=== PATIENT | female | born 1980 | race Caucasian/White ===

== ENCOUNTER 2022-10-28 18:55 | Emergency (ER) | payer OTHER, SELFPAY ==
[2022-10-28] VITALS (24 sets, daily range): BP systolic 96–127; BP diastolic 65–86; PULSE 76–118; RESP 9–25; TEMP 36.6; O2SAT 96–100
--- NOTE | ~2022-10-28 | XR_ITS ---
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 no cardiac hx Comparison: None available. RESULT: Lines, tubes, and devices: None. Lungs and pleura: Slightly low lung volumes with crowding. Lungs otherwise clear. Cardiomediastinal silhouette: Normal. Other: No acute osseous or upper abdominal finding. IMPRESSION: No acute cardiopulmonary process. Reviewed, dictated and finalized at location K. ING DIE FINISHER
--- NOTE | ~2022-10-28 | CT_ITS ---
EXAMINATION: CT brain wo con DATE: 10/28/2022 20:56 INDICATION: stuttering speech, tremors . TECHNIQUE: Computed tomography (CT) of the head was performed without intravenous contrast. The mA wa s adjusted according to patient size. Iterative reconstruction technique was employed. The dose-lengt h product was 605.33 mGy-cm. COMPARISON: None. FINDINGS: Technically limited sagittal reformats, with low-resolution and stairstep artifact. No acute intracranial hemorrhage or extra-axial fluid collection. No hydrocephalus, mass, or herniation. No acute ischemic infarct. Unremarkable dural venous sinus attenuation. No acute osseous abnormality. The aerated spaces are clear. IMPRESSION: Technically limited sagittal reformats. Within that constraint, no definite acute intracranial proces s. Reviewed, dictated and finalized at location K. BATIC RIGGER IMPRESSION: Technically limited sagittal reformats. Within that constraint, no definite acu te intracranial process.
--- NOTE | 2022-10-28 19:06 | PC.NURSE ---
pt shaking herself out of wheelchair at intake desk. pt conversing during shaking episodes. assisted by [facility]. pt taken to room 3.
--- NOTE | 2022-10-28 19:35 | ECG_ITS ---
Measurements Intervals [place] Rate: 120 P: 61 TX: 151 QRS: 57 QRSD: 84 T: 38 QT: 304 QTc: 431 Interpretive Statements SINUS TACHYCARDIA MINIMAL Q WAVES- ANTEROLAT/INF LEADS NONSPECIFIC ST & T-WAVE ABNORMALITY- ANT/INF LEADS BASELINE ARTIFACT- I, III, AVR, AVL, AVF ABNORMAL ECG NO PREVIOUS ECG AVAILABLE FOR COMPARISON Electronically Signed On 10-29-2022 6:33:28 [employer] by Rafy Garrett D.O.
[2022-10-28] MEDS: SODIUM CHLORIDE 0.9% IV 1,000 ML 999 ML IV CONT (20:05)
--- NOTE | 2022-10-28 20:05 | PC.NURSE ---
pt resting comfortably in bed, arms no longer shaking. Respirations even and unlabored. WCTM.
--- NOTE | 2022-10-28 20:06 | ED.GENADULT ---
HPI - General Adult General Chief complaint: Unspecified Stated complaint: tremors and incontinence s/p marijuana Time Seen by Provider: 10/28/22 19:05 Source: patient, EMS and RN notes reviewed Mode of arrival: EMS Limitations: intoxication History of Present Illness HPI narrative: This is a 42 year old female with history of anxiety who presents for evaluation of tremors s/p incontinence. Patient states she smoked marijuana today and afterwards she developed tremors, uncontrollable crying with stuttering speech. She reports she has been smoking marijuana for the past 2 days. She states she bought the marijuana from somewhere in [place]. She denies drinking alcohol or any other drug use. Related Data Allergies Allergy/AdvReac Type Severity Reaction Status Date / Time No Known Allergies Allergy Unverified 02/13/16 15:03 Review of Systems Constitutional: Constitutional: Denies weakness Cardiovascular: Cardiovascular: Denies syncope, Denies rapid heart rate, Denies irregular heart rhythm, Denies leg edema and Denies dyspnea Respiratory: Respiratory: Denies chest congestion, Denies hemoptysis, Denies excessive phlegm production and Denies dyspnea Gastrointestinal: Gastrointestinal: Denies abdominal pain, Denies hematochezia, Denies diarrhea and Denies vomiting Genitourinary: Genitourinary: Denies hematuria and Denies dysuria Musculoskeletal: Musculoskeletal: Denies joint swelling, Denies loss of height and Denies muscle weakness Neurologic: Reports Abnormal speech present, Denies syncope, Denies focal weakness, Reports tremor(s) and Denies weakness Psychiatric: Psychiatric: Reports anxiety PMFSH Past Medical History Medical History (Updated 10/29/22 @ 05:52 by Malinda Norwood MD) Patient denies medical problems Social History Social History (Updated 10/29/22 @ 05:52 by Malinda Norwood MD) Smoking status: Never smoker Alcohol intake: current Substance use type: marijuana Exam Narrative: GENERAL: patient anxious, tearful, HEAD: Normocephalic, atraumatic EYES: PERRLA and EOMI, conjunctiva clear without discharge EARS: TM's clear bilaterally without erythema or dullness NOSE: Nares clear, no rhinorrhea or epistaxis THROAT:Mucous membranes moist, Oropharynx normal without erythema, exudate, peritonsillar swelling or fluctuance NECK: Supple, without lymphadenopathy or mass RESPIRATORY: No respiratory distress, Airway patent, Respirations non-labored, Clear to auscultation without rales, rhonchi or wheeze HEART: tachycardic rate and regular rhythm. No murmur heard. Normal peripheral pulses. ABDOMEN: Soft, nontender, nondistended, normal active bowel sounds. No masses. No rebound or guarding, No organomegaly. EXTREMITIES: No edema, normal strength with full range of motion. SKIN: Warm, dry, normal color without rash NEURO: Alert and oriented x3. CN 2-12 grossly intact. No focal deficits. tapping bilateral hands on bed, speech low intermittent stuttering PSYCH: anxious, tearful. Neuro: Speech: No Abnormal speech present Course Reevaluation(s) Reevaluation #1: PAtient states that she feels better and she is ready for discharge home. Date: 10/29/22 Time: 01:29 Vital Signs Vital signs: Vital Signs Temperature 98 F 10/28/22 19:13 Pulse Rate 118 H 10/28/22 19:13 Respiratory Rate 22 H 10/28/22 19:13 Blood Pressure 127/77 10/28/22 19:13 Pulse Oximetry 98 10/28/22 19:13 Oxygen Delivery Room Air 10/28/22 19:13 Temperature 98 F 10/29/22 02:12 Pulse Rate 69 10/29/22 02:12 Respiratory Rate 18 10/29/22 02:12 Blood Pressure 118/69 10/29/22 02:12 Pulse Oximetry 99 10/29/22 02:12 Oxygen Delivery Room Air 10/28/22 19:13 Medical Decision Making Vital Signs Vital Signs: Vital Signs Temperature 98 F 10/28/22 19:13 Pulse Rate 118 H 10/28/22 19:13 Respiratory Rate 22 H 10/28/22 19:13 Blood Pressure 127/77 10/28/22 19:13 Pulse Oximetry 98
[2022-10-28 20:13] LABS: Basophils Percent Auto 0.2 % (0.2-1.2); Eosinophils Percent Auto 0.1 % (0-4.4); Hematocrit 41.1 % (37.0-47.0); Hemoglobin 13.2 g/dL (12.0-15.0); Immature Granulocyte Absolute 0.06 K/mm3 (0.00-0.031); Immature Granulocyte Percent A 0.5 % (0-0.5); Lymphocytes Absolute Auto 1.79 K/mm3 (0.9-3.2); Lymphocytes Percent Auto 13.6 % (18.3-44.2); Mean Corpuscular HGB Conc 32.1 g/dl (32-36); Mean Corpuscular Hemoglobin 29.5 pg (26-34); Mean Corpuscular Volume 91.7 fl (80-100); Mean Platelet Volume 9.8 fl (7.4-10.4); Monocytes Absolute Auto 0.6 K/mm3 (0.1-0.6); Monocytes Percent Auto 4.2 % (2.6-8.5); Neutrophils Absolute Auto 10.7 K/mm3 (1.3-6.7); Neutrophils Percent Auto 81.4 % (45.5-73.1); Platelet Count Result 289 k/mm3 (150-375); Red Blood Count 4.48 M/mm3 (4.2-5.4); Red Cell Distribution Width 13.6 % (11.5-14.5); White Blood Count 13.2 K/mm3 (4.5-10.0)
[2022-10-28 20:19] LABS: Ethanol < 10 mg/dL (<10)
[2022-10-28 20:29] LABS: Alanine Aminotransferase 30 U/L (6-35); Albumin Level 4.4 g/dL (3.5-5.1); Alkaline Phosphatase 86 U/L (38-126); Anion Gap 8 mmol/L (8-16); Aspartate Amino Transferase 28 U/L (14-36); Bilirubin,Total 0.4 mg/dL (0.2-1.3); Blood Urea Nitrogen 5 mg/dL (7-17); Carbon Dioxide 26 mmol/L (22-30); Chloride 105 mmol/L (98-107); Estimated CRCL calculation 118 ml/min; Estimated Glomerular Filt Rate > 60; Glucose 143 mg/dL (65-110); Potassium 3.6 mmol/L (3.4-5.0); Sodium 139 mmol/L (137-145)
[2022-10-28 21:05] LABS: Appearance Urine Clear (Clear); Bilirubin Urine Negative (Negative); Blood Urine Negative (Negative); Color Urine Yellow (Yellow); Glucose Urine UA Negative (Negative); Ketones Urine Negative (Negative); Leukocyte Esterase Ur Negative LEU/UL (Negative); Nitrate Urine Negative (Negative); Protein Urine 1+ mg/dL (Negative); Specific Grav Ur 1.025 (1.001-1.035); Urobilinogen Urine 0.2 mg/dL (<2.0)
[2022-10-28 21:06] LABS: Amphetamine Screen Urine Negative (Negative); Barbiturate Screen Urine Negative (Negative); Benzodiazepines Screen Urine Negative (Negative); Cannabinoid Screen Urine Positive (Negative); Cocaine Screen Urine Negative (Negative); Methadone Screen Urine Negative (Negative); Opiate Screen Urine Negative (Negative); Phencyclidine Screen Urine Negative (Negative)
[2022-10-28 21:09] LABS: Mucus Urine Rare /lpf; RBC Urine 0-2 /hpf (0-2); Squamous Epithelial Cell Urine Moderate /hpf (Few); WBC Urine 0-3 /hpf
[2022-10-28 21:13] LABS: Add Urine Microscopic? YES
--- NOTE | 2022-10-28 21:50 | PC.NURSE ---
pt sleeping w/ visible chest rise and fall, NAD. WCTM.
--- NOTE | 2022-10-28 23:32 | PC.NURSE ---
pt sleeping w/ visible chest rise and fall, NAD, s/o at bedside. Updated on plan of care, VSS.
[2022-10-29] VITALS (9 sets, daily range): BP systolic 95–118; BP diastolic 63–70; PULSE 69–102; RESP 18–25; TEMP 36.6; O2SAT 97–99
== END 2022-10-29 02:12 | disposition home or self-care (01) ==
PROVIDERS: Emergency Provider General Practice
DX: F98.5 Adult onset fluency disorder (principal); T40.715A Adverse effect of cannabis, initial encounter
CPT/HCPCS: 36415; 70450; 71045; 80053; 80307; 81001; 81025; 85025; 93005; 96360; 99284; J7030